=== PATIENT | male | born 1995 | race Caucasian/White ===

== ENCOUNTER 2019-10-11 17:52 | Emergency (ER) | payer MEDICAID, OTHER ==
[~2019-10-11] VITALS: Ht 190 cm; Wt 83.1 kg
--- NOTE | 2019-10-11 19:21 | ED EENT ---
History of Present Illness General Chief Complaint: Eye Problems Stated Complaint: EYE PAIN Nursing Triage Note: Patient ambulatory to [facility] with complaint of right eye redness and pain. Patient states he was cutting wood this afternoon and believes a piece of wood flew into his eye. Source: patient Exam Limitations: no limitations History of Present Illness Date Seen by Provider: Oct 11, 2019 Time Seen by Provider: 19:21 Initial Comments 24-year-old male patient presents with the complaints of right eye redness and pain. Patient reports cutting with this afternoon when a piece of wood flew into the eye. Denies changes in vision from his normal vision (pt reports breaking his glasses 1 wk ago). Patient states he has an appointment with Dr. Aguilar in [place] on Saturday. Timing/Duration: abrupt Location: eye (R) Prearrival Treatment: no prearrival treatment Modifying Factors: Worse With Other (movement) Allergies and Home Medications Allergies Coded Allergies: Penicillins (Verified Allergy, Unknown, PER PARENTS PATIENT HAS TAKEN KEF GEORGINA WITHOUT PROBLEMS, 09/22/07) Home Medications Hydrocodone Bit/Acetaminophen 1 Tab Tab, 1 EACH PO Q4-6HR PRN for PAIN-MODERATE Prescribed by: RYAN WOODS on 10/11/192007 Patient Home Medication List Home Medication List Reviewed: Yes Review of Systems Review of Systems Constitutional: no symptoms reported Eyes: See HPI; Denies Drainage; Foreign Body Sensation, Inflammation, Pain, Photophobia Ears: No Symptoms Reported Nose: no symptoms reported Mouth: no symptoms reported Throat: no symptoms reported Respiratory: no symptoms reported Cardiovascular: no symptoms reported Musculoskeletal: no symptoms reported Skin: no symptoms reported Neurological: No Symptoms Reported All Other Systems Reviewed Negative Unless Noted: Yes (Negative excepted noted.) Past Dicdcnw-Mtuukm-Ucmxeb Hx Past Med/Social Hx: Reviewed Nursing Past Med/Soc Hx Patient Social History Alcohol Use: Regular Use Alcohol Beverage of Choice: Beer Recreational Drug Use: No Smoking Status: Never a Smoker 2nd Hand Smoke Exposure: No Recent Foreign Travel: No Contact w/Someone Who Travel: No Recent Infectious Disease Expo: No Recent Hopitalizations: No Physical Abuse: No Sexual Abuse: No Mistreated: No Fear: No Immunizations Up To Date Tetanus Booster (TDap): Less than 5yrs PED Vaccines UTD: Yes Seasonal Allergies Seasonal Allergies: No Past Medical History Surgeries: Yes (hernia) Respiratory: No Cardiac: No Neurological: No Genitourinary: No Gastrointestinal: No Musculoskeletal: No Endocrine: No HEENT: No Cancer: No Psychosocial: No Family Medical History Reviewed Nursing Family Hx No Pertinent Family Hx Physical Exam Vital Signs Vital Signs - First Documented 10/11/19 18:27 Temp 36.7 Pulse 90 Resp 14 B/P (MAP) 124/73 (90) Pulse Ox 99 O2 Delivery Room Air Height, Weight, BMI Height: '" Weight: lbs. oz. kg; 23.00 BMI Method: General Appearance: WD/WN, no apparent distress Eyes: right eye conjunctival inflammation, right eye corneal abrasion (see images); left eye normal inspection; bilateral eye PERRL, bilateral eye EOMI Nose: normal inspection Mouth/Throat: normal mouth inspection, pharynx normal Neck: non-tender, supple, normal inspection Cardiovascular: regular rate, rhythm, no murmur Respiratory: lungs clear, normal breath sounds, no respiratory distress, no acc essory muscle use Neurologic/Psychiatric: alert, normal mood/affect, oriented x 3 Skin: normal color, warm/dry Procedures/Interventions Eye : Location: right eye Anesthesia (gtts): Tetracaine Intraocular Pressure: Per Tonopen (rt eye 26 mmHg) Progress/Procedure Conclusion corneal abrasion to the rt eye (see images) Progress/Results/Core Measures Results/Orders My Orders Orders - RYAN WOODS Tetracaine 0.5% Ophth Shameka Sdv (Tetracai (10/11/19 19:30) Fluorescein Strips ([id number]) (10/11/19 19:30) Rx-Gentamicin Ophth Soln (Rx-Gentamicin (10/11/19 19:59) Rx-Hydrocodone/Apap 5-325 Mg (Rx-Vicodin (10/11/19 20:00) Rx-Ofloxacin 0.3% Ophth Soln (Rx-Ocuflox (10/11/19 20:09) Medications Given in ED Current Medications Medications Dose Ordered Sig/Jovana Route Start Time Stop Time Status Last Admin Dose Admin Acetaminophen/ Hydrocodone Bitart 1 ea Q6H PRN PO 10/11/19 20:00 10/11/19 20:22 DC 10/11/19 20:16 1 EA Fluorescein Sodium 1 mg ONCE ONCE OU 10/11/19 19:30 10/11/19 19:31 DC 10/11/19 19:37 1 MG Ofloxacin 5 ml STK-MED ONCE .ROUTE 10/11/19 20:09 10/11/19 20:12 DC 10/11/19 20:15 5 ML Tetracaine HCl 4 ml ONCE ONCE OU 10/11/19 19:30 10/11/19 19:31 DC 10/11/19 19:37 4 ML Vital Signs/I&O 10/11/19 10/11/19 18:27 20:21 Temp 36.7 36.7 Pulse 90 85 Resp 14 16 B/P (MAP) 124/73 (90) 127/92 Pulse Ox 99 98 O2 Delivery Room Air Room Air Blood Pressure Mean: 90 POS Departure Communication (Admissions) patient seen and evaluated. patient noted to have a corneal abrasion of the rt eye. patient is scheduled to see Dr. Aguilar on Saturday. Impression Primary Impression: Corneal abrasion Qualified Codes: S05.01XA - Injury of conjunctiva and corneal abrasion without foreign body, right eye, initial encounter Disposition: HOME, SELF-CARE Condition: Improved Departure-Patient Inst. Decision time for Depature: 20:06 Referrals: NO,LOCAL PHYSICIAN (PCP/Family) Primary Care Physician Patient Instructions: Corneal Abrasion (DC) Add. Discharge Instructions: All discharge instructions reviewed with patient and/or family. Voiced understanding. Medications as instructed. Tylenol Extra Strength [id number] as directed for pain. Ibuprofen 800 mg by mouth every 8 hours as needed for pain.. Follow-up with as an outpatient for recheck on Saturday as scheduled. Return to the emergency department for worsened symptoms, changes in vision, fever, pain, or any other concerns. Scripts Hydrocodone Bit/Acetaminophen (Hydrocodone/Acetaminophen 5/325mg Tablet) 1 Tab Tab 1 EACH PO Q4-6HR PRN for PAIN-MODERATE MDD 10, #6 TAB 0 Refills Prov: RYAN WOODS 10/11/19 Work/School Note: Work Release Form Date Seen in the Emergency Department: Oct 11, 2019 Return to Work: Oct 14, 2019 Images Eye 1 - Abrasion, Dye uptake (fluorescein) RYAN WOODS Oct 11, 2019 19:21 POS
[2019-10-11] MEDS ORDERED: FLUORESCEIN (FLUOR-I-STRIPS) 1 MG STRP OU ONE (19:30)
[2019-10-11] MEDS ORDERED: TETRACAINE 0.5% OPHTH SOLN 4 ML BTL (SINGLE DOSE ONLY) OU ONE (19:30)
[2019-10-11] MEDS ORDERED: RX-GENTAMICIN SULFATE 0.3% OP 5 ML BTL OP STA (19:59)
[2019-10-11] MEDS ORDERED: RX-HYDROCODONE/APAP 5/325 MG #4 TAB PK PO PRN (20:00)
[2019-10-11] MEDS ORDERED: ACHD5005 PO (20:08)
[2019-10-11] MEDS ORDERED: RX-OFLOXACIN 0.3% OPHTH SOLN 5 ML ONE (20:09)
[2019-10-11 20:21] VITALS: BP 127/92
== END 2019-10-11 20:22 | disposition home or self-care (01) ==
LOC: EDUNIT# 17:52 → ER 17:54
DX: S05.01XA Injury of conjunctiva and corneal abrasion without foreign body, right eye, initial encounter (principal); Z88.0 Allergy status to penicillin; W22.8XXA Striking against or struck by other objects, initial encounter
CPT/HCPCS: 99283